=== PATIENT | female | born 1970 | race Caucasian/White ===

== ENCOUNTER 2022-05-18 02:37 | Observation (INO) ==
[2022-05-18] MEDS ORDERED: SODIUM CHLORIDE 0.9% 1,000 ML IV STA (04:30)
[2022-05-18] MEDS ORDERED: ONDANSETRON 4 MG/2 ML VIAL IV STA (04:48)
[2022-05-18] MEDS ORDERED: HYDROmorphone 1 MG/1 ML SYRINGE IV STA (04:48)
[2022-05-18 04:59] LABS: Basophils % 0.2 % (0.0-0.8); Hematocrit 39.3 VOL% (35.7-47.0); Hemoglobin 12.8 GM/DL (12.0-16.0); Immature Granulocytes % 0.5 %; Immature Granulocytes Absolute 0.07 #; Lymphocytes # 1.2 10*3/uL (1.4-4.0); Lymphocytes % 8.2 % (21.3-54.2); Mean Corpuscular HGB Conc 32.6 GM/DL (32-36); Mean Corpuscular Volume 86.9 FL (87-102); Mean Platelet Volume 9.2 FL (9.6-12.0); Monocytes # 0.8 10*3/uL (0.11-0.8); Monocytes % 5.7 % (1.7-12.7); Neutrophils % 85.4 % (38.7-73.9); Platelet Count 347 T/CUMM (130-400); Red Blood Count 4.52 MC/CUMM (3.8-5.5); Red Cell Distribution Width 13.1 % (9.3-17.3); White Blood Count 14.2 T/CUMM (4-12)
[2022-05-18 05:10] LABS: PT Patient Result 10.7 SECS (10.1-12.1); Partial Thromboplastin Time 26.7 SECS (23.7-32.9)
[2022-05-18 05:27] LABS: Albumin 3.9 G/DL (3.4-5.0); Bilirubin,Total 0.5 MG/DL (0.20-1.00); Calcium 9.2 MG/DL (8.5-10.1); Potassium 3.8 MMOL/L (3.5-5.1)
[2022-05-18] MEDS ORDERED: PROMETHAZINE INJ 12.5 MG in SODIUM CHLORIDE 0.9% 50 ML IV STA (05:30)
[2022-05-18] MEDS ORDERED: MORPHINE 2 MG/1 ML SYRINGE IV PRN (06:22)
[2022-05-18] MEDS ORDERED: ONDANSETRON 4 MG/2 ML VIAL IV PRN (06:22)
[2022-05-18] MEDS ORDERED: metroNIDAZOLE INJ 500 MG/100 ML PREMIX IV SCH (06:30)
[2022-05-18] MEDS ORDERED: DEXTROSE 5% NACL 0.45% 1,000 ML IV SCH (06:30)
[2022-05-18] MEDS ORDERED: LEVOFLOXACIN INJ 750 MG/150 ML PREMIX IV SCH (06:30)
[2022-05-18] MEDS ORDERED: CLINDAMYCIN INJ 900 MG/50 ML PREMIX IV ONE (07:02)
[2022-05-18] MEDS ORDERED: SUCCINYLCHOLINE 200 MG/10 ML VIAL ONE (07:09)
[2022-05-18] MEDS ORDERED: fentaNYL 100 MCG/2 ML VIAL ONE (07:09)
[2022-05-18] MEDS ORDERED: propofoL 200 MG/20 ML VIAL IV ONE (07:09)
[2022-05-18] MEDS ORDERED: LIDOCAINE 2% 5 ML VIAL ONE (07:09)
[2022-05-18] MEDS ORDERED: MIDAZOLAM 2 MG/2 ML VIAL ONE (07:09)
[2022-05-18] MEDS ORDERED: ROCURONIUM 50 MG/5 ML VIAL IV ONE (07:09)
[2022-05-18] MEDS ORDERED: TISSUE ADHESIVE 1 EACH APPLICATOR TOP ONE (07:10)
[2022-05-18] MEDS ORDERED: SCOPOLAMINE 1.5 MG PATCH TRANSDERM ONE (07:30)
[2022-05-18] MEDS ORDERED: ONDANSETRON 4 MG/2 ML VIAL ONE (07:43)
[2022-05-18] MEDS ORDERED: DEXAMETHASONE 4 MG/1 ML VIAL ONE (07:43)
[2022-05-18] MEDS ORDERED: ePHEDrine 50 MG/ML VIAL ONE (08:02)
[2022-05-18] MEDS ORDERED: SEVOFLURANE 1 UNIT/15 MINUTE INH ONE (08:05)
[2022-05-18] MEDS ORDERED: SUGAMMADEX 200 MG/2 ML VIAL IV ONE (08:17)
[2022-05-18] MEDS ORDERED: PANTOPRAZOLE 40 MG VIAL IV SCH (09:00)
[2022-05-18 12:28] LABS: Bilirubin,Urine Negative (Negative); Blood, Urine Trace mg/dL (Negative); Glucose,Urine (UA) Negative (Negative); Ketones,Urine Negative (Negative); Mucus,Urine Occasional /LPF (Occasional); Nitrite,Urine Negative (Negative); Protein,Urine Negative (Negative); RBC,Urine 1 /HPF (0-4); Squamous Epithelial Cell,Urine Occasional /HPF (0-10); Urine Appearance Clear (Clear); Urine Color Yellow (Yellow); Urine Specific Gravity 1.015 (1.001-1.035); Urine Urobilinogen 0.2 eU/dL (<2.0)
[2022-05-18 12:34] VITALS: BP 112/58
== END 2022-05-18 13:54 | disposition home or self-care (01) ==
LOC: N.EDINP 02:37 → N.ED 02:37 → N.EDINP 07:27 → N.3E 09:28
PROVIDERS: ADMIT Student in an Organized Health Care Education/Training Program; ATTEND Student in an Organized Health Care Education/Training Program